=== PATIENT | female | born 1950 | race Caucasian/White ===

== ENCOUNTER 2021-04-22 07:59 | Outpatient (CLI) | payer MEDICARE, SELFPAY ==
--- NOTE | 2021-04-22 08:20 | FL_ITS ---
WS: [id number] FL barium swallow [id number] REASON FOR EXAM: DYSPHAGIA FLUOROSCOPY TIME: 1.6 minutes FINDINGS: The swallowing of barium was monitored fluoroscopically with spot films for documentation. The examin ation was from the lower cervical region to the stomach. Patient was evaluated upright and in the [place] prone position. The primary peristaltic wave of the esophagus weakened significantly at the thoracic inlet where ther e is a bulbous retention of the barium which is was persistent but finally cleared with several non b arium swallows. More distally there is retention of barium within the esophagus without dilatation. T here are tertiary contractions which produce retrograde movement of the barium towards the hypopharyn x. Barium can be cleared from the esophagus with additional swallows. FL/FL barium swallow [id number] IMPRESSION: Significant esophageal dysmotility as above. The retention at the thoracic inle t and the retrograde movement of barium indicating a risk for aspiration.
== END 2021-04-22 08:00 | disposition home or self-care (01) ==
PROVIDERS: Visit Provider Internal Medicine Pulmonary Disease
DX: R13.10 Dysphagia, unspecified (principal)
CPT/HCPCS: 74220